=== PATIENT | male | born 1940 | race Caucasian/White ===

== ENCOUNTER 2017-03-22 09:49 | Emergency (ER) | payer MEDICARE, BC ==
[2017-03-22] MEDS ORDERED: Albuterol/Ipratropium 3.0-0.5 MG/3 ML Neb Soln NEB ONE (10:10)
[2017-03-22] MEDS ORDERED: Sodium Chloride 0.9% 10 ML Syringe FLUSH PRN (10:10)
[2017-03-22] MEDS ORDERED: methylPREDNISolone Sodium Succinate 125 MG/2 ML SDV IVPUSH ONE (10:11)
--- NOTE | 2017-03-22 10:16 | EDM.PDOC ---
ED HPI GENERAL MEDICAL PROBLEM - General Chief Complaint: Respiratory Problem Stated Complaint: SOB Time Seen by Provider: 03/22/17 10:05 Source of Information: Reports: Patient History Limitations: Reports: No Limitations - History of Present Illness INITIAL COMMENTS - FREE TEXT/NARRATIVE: The patient presents with shortness of breath and wheezing for a couple of days. He has a history of asthma but he has not needed any albuterol for 3 to 4 years. 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 He threw out his albuterol because it was outdated. He denies fever, chills, chest pain, abdominal pain, nausea or vomiting. He had a cold a few days ago with a mild cough. Onset: Gradual Duration: Day(s): (2) Severity: Moderate Improves with: Reports: None Worsens with: Reports: None Associated Symptoms: Reports: Shortness of Breath. Denies: Chest Pain, Fever/ Chills, Nausea/Vomiting - Related Data Allergies Allergy/AdvReac Type Severity Reaction Status Date / Time Sulfa (Sulfonamide Allergy Rash Verified 03/22/17 09:56 Antibiotics) Dust Allergy Other Uncoded 03/22/17 09:56 Home Meds: Home Meds Albuterol [IJD: Ventolin HFA] 2 puff INH Q6HR PRN #18 gm 03/22/17 [Rx] Insulin Glarg,Human.Rec.Analog [LantUS Solostar] 11 units SQ DAILY 03/22/17 [ History] Prednisone [IJD: predniSONE] 40 mg PO WITHBREAKFAST #10 tab 03/22/17 [Rx] atorvaSTATin [Lipitor] 40 mg PO DAILY 03/22/17 [History] metFORMIN HCl [Metformin HCl] 1 tab PO BID 03/22/17 [History] Past Medical History HEENT History: Reports: Impaired Vision Respiratory History: Reports: Asthma Gastrointestinal History: Reports: Hiatal Hernia Other Genitourinary History: Bladder cancer and had surgery Endocrine/Metabolic History: Reports: Diabetes, Type II Oncologic (Cancer) History: Reports: Bladder Other Oncologic History: "and skin cancer of the face." Other Dermatologic History: "skin cancer of the face" - Past Surgical History HEENT Surgical History: Reports: Tonsillectomy Musculoskeletal Surgical History: Reports: Shoulder Replacement Social & Family History - Family History Family Medical History: Noncontributory - Tobacco Use Smoking Status *Q: Never Smoker - Recreational Drug Use Recreational Drug Use: No ED ROS GENERAL - Review of Systems Review Of Systems: See Below Constitutional: Reports: No Symptoms HEENT: Reports: No Symptoms Respiratory: Reports: Shortness of Breath, Wheezing Cardiovascular: Reports: No Symptoms Endocrine: Reports: No Symptoms GI/Abdominal: Reports: No Symptoms : Reports: No Symptoms Musculoskeletal: Reports: No Symptoms ED EXAM, GENERAL - Physical Exam Exam: See Below Exam Limited By: No Limitations General Appearance: Alert, No Apparent Distress Ears: Normal External Exam Nose: Normal Inspection Head: Atraumatic, Normocephalic Neck: Normal Inspection Respiratory/Chest: No Respiratory Distress, Wheezing (Moderate) Cardiovascular: Regular Rate, Rhythm, No Edema, No Murmur GI/Abdominal: Soft, Non-Tender, No Organomegaly, No Mass Back Exam: Normal Inspection Extremities: Normal Inspection Course - Vital Signs Last Recorded V/S: Last Vital Signs Temp 97.2 F 03/22/17 09:52 Pulse 85 03/22/17 09:52 Resp 21 H 03/22/17 09:52 BP 161/82 H 03/22/17 09:52 Pulse Ox 96 03/22/17 10:30 - Orders/Labs/Meds Orders: Active Orders 24 hr Category Date Time Status Cardiac Monitoring [RC] . DIRECTED Care 03/22/17 10:10 Active Oxygen Therapy [RC] PRN Care 03/22/17 10:10 Active Peripheral IV Care [RC] . DIRECTED Care 03/22/17 10:10 Active RT Aerosol Therapy [RC] ASDIRECTED Care 03/22/17 10:10 Active Sodium Chloride 0.9% [Saline Flush] Med 03/22/17 10:10 Active 10 ml FLUSH ASDIRECTED PRN Peripheral IV Insertion Adult [OM.PC] Stat Oth 03/22/17 10:10 Ordered Medication Orders Sodium Chloride (Saline Flush) 10 ml FLUSH ASDIRECTED PRN PRN Reason: Keep Vein Open Last Admin: 03/22/17 10:22 Dose: 10 ml Labs: Laboratory Tests 03/22/17 03/22/17 Range/Units 10:00 10:00 WBC 8.49 (4.23-9.07) K/mm3 RBC 4.68 (4.63-6.08) M/mm3 Hgb 14.7 (13.7-17.5) gm/L Hct 43.9 (40.1-51.0) % MCV 93.8 H (79.0-92.2) fl MCH 31.4 (25.7-32.2) pg MCHC 33.5 (32.2-35.5) g/dl RDW Std Deviation 46.3 H (35.1-43.9) fL Plt Count 170 (163-337) K/mm3 MPV 10.9 (9.4-12.3) fl Neut % (Auto) 64.4 (34.0-67.9) % Lymph % (Auto) 15.9 L (21.8-53.1) % [place] % (Auto) 8.4 (5.3-12.2) % Eos % (Auto) 10.7 H (0.8-7.0) Baso % (Auto) 0.5 (0.1-1.2) % Neut # (Auto) 5.47 H (1.78-5.38) K/mm3 Lymph # (Auto) 1.35 (1.32-3.57) K/mm3 [place] # (Auto) 0.71 (0.30-0.82) K/mm3 Eos # (Auto) 0.91 H (0.04-0.54) K/mm3 Baso # (Auto) 0.04 (0.01-0.08) K/mm3 Sodium 141 (136-145) mEq/L Potassium 4.7 (3.5-5.1) mEq/L Chloride 105 (98-107) mEq/L Carbon Dioxide 28 (21-32) mEq/L Anion Gap 12.7 (5-15) BUN 25 H (7-18) mg/dL Creatinine 1.6 H (0.7-1.3) mg/dL Est Cr Clr Drug Dosing 41.19 mL/min Estimated GFR (MDRD) 42 (>60) mL/min BUN/Creatinine Ratio 15.6 (14-18) Glucose 127 H (83-115) mg/dL Calcium 9.3 (8.5-10.1) mg/dL Total Bilirubin 0.6 (0.2-1.0) mg/dL AST 21 (15-37) U/L ALT 28 (16-63) U/L Alkaline Phosphatase 74 (46-116) U/L Total Protein 7.4 (6.4-8.2) g/dl Albumin 3.8 (3.4-5.0) g/dl Globulin 3.6 gm/dL Albumin/Globulin Ratio 1.1 (1-2) Meds: Medications Generic Name Dose Route Start Last Admin Trade Name Freq PRN Reason Stop Dose Admin Sodium Chloride 10 ml 03/22/17 10:10 03/22/17 10:22 Saline Flush FLUSH 10 ml ASDIRECTED PRN Administration Keep Vein Open Discontinued Medications Generic Name Dose Route Start Last Admin Trade Name Freq PRN Reason Stop Dose Admin Albuterol/Ipratropium 3 ml 03/22/17 10:10 03/22/17 10:30 Duoneb 3.0-0.5 Mg/3 Ml NEB 03/22/17 10:11 3 ml ONETIME ONE Administration Methylprednisolone Sodium Succinate 125 mg 03/22/17 10:11 03/22/17 10:20 Solu-Medrol IVPUSH 03/22/17 10:12 125 mg ONETIME ONE Administration - Re-Assessments/Exams Free Text/Narrative Re-Assessment/Exam: 03/22/17 10:18 I ordered an IV saline lock, duoneb, solu-medrol 125mg IV, labs and CXR. 03/22/17 11:04 His CXR looks good. His CBC looks good. His creatinine is a little elevated at 1.6. He is breathing better. I will get him a prescription for prednisone and albuterol. Departure - Departure Time of Disposition: 11:05 Disposition: Home, Self-Care 01 Condition: Good Clinical Impression: Exacerbation of asthma Qualifiers: Asthma severity: moderate Asthma persistence: unspecified Qualified Code(s): J45.901 - Unspecified asthma with (acute) exacerbation - Discharge Information Prescriptions: Albuterol [IJD: Ventolin HFA] 2 puff INH Q6HR PRN #18 gm PRN Reason: Shortness Of Breath Prednisone [IJD: predniSONE] 40 mg PO WITHBREAKFAST #10 tab Referrals: Pelon Morgan MD [Primary Care Provider] - Forms: ED Department Discharge Additional Instructions: Take the prednisone daily for 5 days. Take the albuterol 2 puffs every 4 to 6 hours as needed for wheezing or shortness of breath. Please return if you are worse. - My Orders Last 24 Hours: My Active Orders 03/22/17 10:10 Cardiac Monitoring [RC] . DIRECTED Oxygen Therapy [RC] PRN Peripheral IV Care [RC] . DIRECTED RT Aerosol Therapy [RC] ASDIRECTED Sodium Chloride 0.9% [Saline Flush] 10 ml FLUSH ASDIRECTED PRN Peripheral IV Insertion Adult [OM.PC] Stat - Assessment/Plan Last 24 Hours: My Active Orders 03/22/17 10:10 Cardiac Monitoring [RC] . DIRECTED Oxygen Therapy [RC] PRN Peripheral IV Care [RC] . DIRECTED RT Aerosol Therapy [RC] ASDIRECTED Sodium Chloride 0.9% [Saline Flush] 10 ml FLUSH ASDIRECTED PRN Peripheral IV Insertion Adult [OM.PC] Stat
--- NOTE | 2017-03-22 10:56 | CR ---
Chest: Two views of the chest were obtained. Comparison: No prior study. Heart size at the upper limits of normal. Tortuous thoracic aorta is seen. Right shoulder prosthesis is seen. Lungs are clear with no acute infiltrates. Mild degenerative change is noted within the spine. Impression: 1. Incidental findings. Nothing acute is seen. Diagnostic code #2
== END 2017-03-22 11:37 | disposition home or self-care (01) ==
LOC: JD.ED 09:49
DX: J45.901 Unspecified asthma with (acute) exacerbation (principal); E11.9 Type 2 diabetes mellitus without complications; Z88.2 Allergy status to sulfonamides; Z79.4 Long term (current) use of insulin; Z79.899 Other long term (current) drug therapy
CPT/HCPCS: 36415; 71020; 80053; 85025; 94640; 96374; 99285; J2930; J7050; 99284

== ENCOUNTER 2018-12-02 09:13 | Emergency (ER) | payer MEDICARE, BC ==
--- NOTE | 2018-12-02 09:46 | EDM.PDOC ---
ED HPI GENERAL MEDICAL PROBLEM - General Chief Complaint: Chest Pain Stated Complaint: CHEST CONGESTION Time Seen by Provider: 12/02/18 09:24 Source of Information: Reports: Patient, RN Notes Reviewed History Limitations: Reports: No Limitations - History of Present Illness INITIAL COMMENTS - FREE TEXT/NARRATIVE: The patient states that he has had a cough productive of yellow sputum, along with nasal congestion and generalized weakness, for the past 10 days. He denies having any chest discomfort, palpitations, dyspnea, nausea, vomiting, constipation, diarrhea, abdominal pain, or urinary symptoms. He has a documented history of asthma, but denies any recent wheezing. The patient's PCP is Dr. Pelon Morgan, in [place]. His Motorized Squad Captain is Dr. William FontanaJuan Josévonda Beckford. - Related Data Allergies Allergy/AdvReac Type Severity Reaction Status Date / Time Sulfa (Sulfonamide Allergy Rash Verified 03/22/17 09:56 Antibiotics) Dust Allergy Other Uncoded 03/22/17 09:56 Home Meds: Home Meds Albuterol [IJD: Ventolin HFA] 2 puff INH Q6HR PRN #18 gm 03/22/17 [Rx] Prednisone [IJD: predniSONE] 40 mg PO WITHBREAKFAST #10 tab 03/22/17 [Rx] atorvaSTATin [Lipitor] 40 mg PO DAILY 03/22/17 [History] metFORMIN HCl [Metformin HCl] 1 tab PO BID 03/22/17 [History] Fluticasone/Salmeterol [Advair 100-50] 1 puff INH BID 12/02/18 [History] Lisinopril 10 mg PO DAILY 12/02/18 [History] Omeprazole 20 mg PO DAILY 12/02/18 [History] Past Medical History HEENT History: Reports: Impaired Vision Cardiovascular History: Reports: High Cholesterol, Hypertension Respiratory History: Reports: Asthma (PFT-confirmed) Gastrointestinal History: Reports: GERD, Hiatal Hernia Genitourinary History: Reports: Chronic Renal Insuffiency Endocrine/Metabolic History: Reports: Diabetes, Type II Oncologic (Cancer) History: Reports: Basal Cell Carcinoma (face), Bladder (s/p TURBT + CTx. No RTx.) - Past Surgical History HEENT Surgical History: Reports: Cataract Surgery, Naso-Sinus Surgery (x 2), Oral Surgery (2 wisdom teeth extracted), Tonsillectomy GI Surgical History: Reports: Hernia, Inguinal (right) Male Surgical History: Reports: TURBT-Transurethral Resection of Bladder Tumor Musculoskeletal Surgical History: Reports: Shoulder Replacement (right, reverse) Social & Family History - Family History Family Medical History: Noncontributory - Tobacco Use Smoking Status *Q: Former Smoker Years of Tobacco use: 15 Packs/Tins Daily: 1 Month/Year Tobacco Last Used: Quit late - Caffeine Use Caffeine Use: Reports: Coffee - Alcohol Use Alcohol Use History: Yes Alcohol Use Frequency: Socially - Recreational Drug Use Recreational Drug Use: No - Living Situation & Occupation Living situation: Reports: Single, Other ([employer] community) Occupation: Employed ([employer]) ED ROS GENERAL - Review of Systems Review Of Systems: ROS reveals no pertinent complaints other than HPI. ED EXAM, GENERAL - Physical Exam Exam: See Below Exam Limited By: No Limitations General Appearance: Alert, No Apparent Distress, Thin Eye Exam: Bilateral Eye: EOMI, Normal Inspection Ears: Normal External Exam, Hearing Grossly Normal Nose: Normal Inspection, Normal Mucosa, No Blood Throat/Mouth: Normal Inspection, Normal Lips, Normal Teeth, Normal Gums, Normal Oropharynx, Normal Voice, No Airway Compromise Head: Atraumatic, Normocephalic Neck: Normal Inspection, Supple, Non-Tender, Full Range of Motion. No: Lymphadenopathy (L), Lymphadenopathy (R) Respiratory/Chest: No Respiratory Distress, No Accessory Muscle Use, Crackles ( on right), Rhonchi (bilateral, with occasional expiratory squeaks). No: Decreased Breath Sounds, Wheezing, Prolonged Expiration Cardiovascular: Normal Peripheral Pulses, Regular Rate, Rhythm, No Edema, No Gallop, No JVD, No Murmur, No Rub Peripheral Pulses: 4+: Radial (L), Radial (R) GI/Abdominal: Normal Bowel Sounds, Soft, Non-Tender, No Organomegaly, No Distention, No Abnormal Bruit, No Mass (Male) Exam: Deferred Rectal (Males) Exam: Deferred Back Exam: Normal Inspection, Full Range of Motion, NT Extremities: Normal Inspection, Normal Range of Motion, No Pedal Edema, Normal Capillary Refill Neurological: Alert, Oriented, Normal Cognition, No Motor/Sensory Deficits Psychiatric: Normal Affect Skin Exam: Warm, Dry, Intact, Normal Color, No Rash Course - Vital Signs Last Recorded V/S: Last Vital Signs Temp 36.7 C 06/28/19 09:21 Pulse 85 12/02/18 09:21 Resp 18 12/02/18 09:21 BP 155/74 H 12/02/18 09:21 Pulse Ox 97 12/02/18 09:21 - Orders/Labs/Meds Orders: Active Orders 24 hr Category Date Time Status EKG Documentation Completion [RC] STAT Care 12/02/18 09:27 Inactive CULTURE BLOOD [BC] Stat Lab 12/02/18 10:14 Received CULTURE BLOOD [BC] Stat Lab 12/02/18 10:21 Received Blood Culture x2 Reflex Set [OM.PC] Stat Oth 12/02/18 09:41 Ordered Labs: Laboratory Tests 12/02/18 12/02/18 12/02/18 Range/Units 10:14 10:14 10:14 WBC 10.36 H (4.23-9.07) K/mm3 RBC 4.01 L (4.63-6.08) M/mm3 Hgb 12.4 L D (13.7-17.5) gm/L Hct 37.0 L (40.1-51.0) % MCV 92.3 H (79.0-92.2) fl MCH 30.9 (25.7-32.2) pg MCHC 33.5 (32.2-35.5) g/dl RDW Std Deviation 43.2 (35.1-43.9) fL Plt Count 223 (163-337) K/mm3 MPV 9.9 (9.4-12.3) fl Neutrophils % (Manual) 83 H (40-60) % Band Neutrophils % 1 (0-10) % Lymphocytes % (Manual) 10 L (20-40) % Atypical Lymphs % 0 % Monocytes % (Manual) 5 (2-10) % Eosinophils % (Manual) 1 (0.8-7.0) % Basophils % (Manual) 0 L (0.2-1.2) Platelet Estimate Adequate Plt Morphology Comment Normal RBC Morph Comment Normal Sodium 135 L (136-145) mEq/L Potassium 4.1 (3.5-5.1) mEq/L Chloride 101 (98-107) mEq/L Carbon Dioxide 23 (21-32) mEq/L Anion Gap 15.1 H (5-15) BUN 24 H (7-18) mg/dL Creatinine 1.5 H (0.7-1.3) mg/dL Est Cr Clr Drug Dosing 42.34 mL/min Estimated GFR (MDRD) 45 (>60) mL/min BUN/Creatinine Ratio 16.0 (14-18) Glucose 146 H (83-115) mg/dL Lactic Acid 1.7 (0.4-2.0) mmol/L Calcium 9.2 (8.5-10.1) mg/dL Total Bilirubin 0.5 (0.2-1.0) mg/dL AST 56 H (15-37) U/L ALT 103 H (16-63) U/L Alkaline Phosphatase 69 (46-116) U/L Total Protein 7.1 (6.4-8.2) g/dl Albumin 2.7 L (3.4-5.0) g/dl Globulin 4.4 gm/dL Albumin/Globulin Ratio 0.6 L (1-2) - Re-Assessments/Exams Free Text/Narrative Re-Assessment/Exam: 12/02/18 09:42 The patient had told Monika SMILEY that he had right-sided chest pain, however, when I came in the room, he insisted that he has not been experiencing chest pain or dyspnea. He reports only a cough productive of yellow sputum, nasal congestion, and generalized weakness. Based on the triage note, I had ordered a workup that included an ECG, troponin, and D-dimer, however, without the chest discomfort or dyspnea, I discontinued those orders. The patient will have a CBC, CMP, lactic acid, and 2 sets of blood cultures drawn, along with a chest x-ray. 12/02/18 10:00 2-view chest radiograph reviewed. There is mild cardiomegaly, but no pulmonary vascular congestion or pleural effusions to suggest decompensated CHF. No focal infiltrate. No pneumothorax. Aortosclerosis noted. Right shoulder prosthesis noted. Formal read per the Radiologist pending. 12/02/18 11:40 The patient's CBC is remarkable for WBC count slightly elevated at 10.36, but with only 1% bandemia. His H/H is slightly depressed at 12.4/37.0. The remainder of his CBC is unremarkable. His CMP is remarkable for potassium at the lower end of normal at 135. His BUN/ Cr are elevated at 24/1.5. They were 25/1.6 on 03/22/2017. His blood glucose is elevated at 146. His AST/ALT are slightly elevated at 56/103. His albumin is depressed at 2.7. The remainder of his CMP is unremarkable. His lactic acid is within normal limits at 1.7. Based on the patient's ED evaluation, he is likely suffering from a viral URI. There is no suggestion of a bacterial infection, therefore antibiotics are not indicated. I will add chronic renal insufficiency to his PMHx. 12/02/18 11:56 Test results discussed with the patient. I will discharge him home. Departure - Departure Time of Disposition: 11:56 Disposition: Home, Self-Care 01 Condition: Good Clinical Impression: Viral URI with cough - Discharge Information *PRESCRIPTION DRUG MONITORING PROGRAM REVIEWED*: Not Applicable *COPY OF PRESCRIPTION DRUG MONITORING REPORT IN PATIENT ISAÍAS: Not Applicable Referrals: Pelon Morgan MD [Primary Care Provider] - William Beckford MD [Ordering Only Provider] - Forms: ED Department Discharge Additional Instructions: You were seen in the emergency room for nasal congestion, generalized weakness, and a cough productive of yellow sputum, for the past 10 days. Workup in the ER included blood work, 2 sets of blood cultures, and a chest x- ray. Your workup confirmed that you have some chronic renal insufficiency, but was otherwise unremarkable. You do not have pneumonia. Based on your history, physical examination, and ER tests, you are most likely suffering from a viral URI with postnasal drip, causing a cough. Unfortunately, there are no medicines to get rid of a viral URI - it will have to run its course. We do not recommend that you take any [id number] cough or cold remedies, as studies have repeatedly shown that they are not effective. Follow-up with your PCP, Dr. Pelon Morgan, as needed. If any other problems, please do not hesitate to return to the ER. - My Orders Last 24 Hours: My Active Orders 12/02/18 09:27 EKG Documentation Completion [RC] STAT 12/02/18 09:41 Blood Culture x2 Reflex Set [OM.PC] Stat 12/02/18 10:14 CULTURE BLOOD [BC] Stat 12/02/18 10:21 CULTURE BLOOD [BC] Stat - Assessment/Plan Last 24 Hours: My Active Orders 12/02/18 09:27 EKG Documentation Completion [RC] STAT 12/02/18 09:41 Blood Culture x2 Reflex Set [OM.PC] Stat 12/02/18 10:14 CULTURE BLOOD [BC] Stat 12/02/18 10:21 CULTURE BLOOD [BC] Stat
--- NOTE | 2018-12-02 10:12 | CR ---
Chest: Two views of the chest were obtained. Comparison: Prior chest x-ray of 03/22/17. Heart size at the upper limits of normal. Tortuous thoracic aorta is seen. Right shoulder prosthesis is seen. Lungs are clear with no acute parenchymal change. Scattered degenerative endplate spurring and disc space narrowing is seen within the spine. Impression: 1. Stable findings as described above. Nothing acute is appreciated. Diagnostic code #2
== END 2018-12-02 12:39 | disposition home or self-care (01) ==
LOC: JD.ED 09:13
DX: J06.9 Acute upper respiratory infection, unspecified (principal); E11.22 Type 2 diabetes mellitus with diabetic chronic kidney disease; I12.9 Hypertensive chronic kidney disease with stage 1 through stage 4 chronic kidney disease, or unspecified chronic kidney disease; N18.9 Chronic kidney disease, unspecified; E78.00 Pure hypercholesterolemia, unspecified; K21.9 Gastro-esophageal reflux disease without esophagitis; J45.909 Unspecified asthma, uncomplicated; Z79.84 Long term (current) use of oral hypoglycemic drugs; Z79.899 Other long term (current) drug therapy; Z87.891 Personal history of nicotine dependence; Z88.2 Allergy status to sulfonamides; Z91.09 Other allergy status, other than to drugs and biological substances
CPT/HCPCS: 36415; 71046; 71046-26; 80053; 83605; 85007; 85027; 87040; 93010; 99282; 99285-25

== ENCOUNTER 2021-10-30 07:47 | Emergency (ER) | payer MEDICARE, BC ==
[2021-10-30] MEDS ORDERED: Sodium Chloride 0.9% 500 ML IV ONE (12:04)
[2021-10-30] MEDS ORDERED: Sodium Chloride 0.9% 10 ML Syringe FLUSH PRN (12:07)
[2021-10-30] MEDS ORDERED: Iopamidol 755 Mg/ML 100 ML Bottle IVPUSH ONE (12:07)
[2021-10-30] MEDS ORDERED: Sodium Chloride 0.9% 100 ML IV SCH (12:15)
== END 2021-10-30 14:34 | disposition home or self-care (01) ==
LOC: JD.ED 07:47
DX: R55 Syncope and collapse (principal); I49.3 Ventricular premature depolarization; E78.00 Pure hypercholesterolemia, unspecified; J45.909 Unspecified asthma, uncomplicated; I10 Essential (primary) hypertension; K21.9 Gastro-esophageal reflux disease without esophagitis; E11.9 Type 2 diabetes mellitus without complications; Z79.899 Other long term (current) drug therapy; Z88.2 Allergy status to sulfonamides; Z91.048 Other nonmedicinal substance allergy status; Z79.84 Long term (current) use of oral hypoglycemic drugs; Z20.822 Contact with and (suspected) exposure to COVID-19
CPT/HCPCS: 36415; 70450; 70450-26; 71275; 71275-26; 80053; 81001; 82947; 83735; 84484; 85025; 85379; 85610; 85730; 93005; 93225; 93226; 96360; 96361; 99284-25; J3490; J7030; Q9967; U0002

== ENCOUNTER 2022-10-25 07:58 | Emergency (ER) | payer MEDICARE, BC ==
[2022-10-25 08:24] LABS: BASOPHILS ABSOLUTE AUTO 0.02 K/mm3 (0.01-0.08); BASOPHILS PERCENT AUTO 0.2 % (0.1-1.2); EOSINOPHILS ABSOLUTE AUTO 0.08 K/mm3 (0.04-0.54); EOSINOPHILS PERCENT AUTO 0.8 (0.8-7.0); HEMATOCRIT 42.3 % (40.1-51.0); IMMATURE GRAN ABSOLUTE AUTO 0.01 K/mm3 (0.00-0.10); IMMATURE GRAN PERCENT AUTO 0.1 % (<=1.0); LYMPHOCYTES ABSOLUTE AUTO 0.75 K/mm3 (1.32-3.57); LYMPHOCYTES PERCENT AUTO 7.9 % (21.8-53.1); MEAN CORPUSCULAR HEMOGLOBIN 30.8 pg (25.7-32.2); MEAN CORPUSCULAR HGB CONC 33.1 g/dl (32.2-35.5); MEAN CORPUSCULAR VOLUME 93.2 fl (79.0-92.2); MEAN PLATELET VOLUME 10.9 fl (9.4-12.3); MONOCYTES PERCENT AUTO 6.3 % (5.3-12.2); NEUTROPHILS ABSOLUTE AUTO 8.01 K/mm3 (1.78-5.38); NEUTROPHILS PERCENT AUTO 84.7 % (34.0-67.9); PLATELET COUNT,PLT 139 K/mm3 (163-337); RED BLOOD CELL COUNT 4.54 M/mm3 (4.63-6.08); WHITE BLOOD CELL COUNT,WBC 9.47 K/mm3 (4.23-9.07)
[2022-10-25 08:31] LABS: INR 1.03
[2022-10-25 08:32] LABS: ALBUMIN 3.6 g/dl (3.4-5.0); ANION GAP 11.7 (5-15); BILIRUBIN TOTAL 0.5 mg/dL (0.2-1.0); BUN/CREATININE RATIO 16.3 (14-18); CALCIUM 9.1 mg/dL (8.5-10.1); CREATININE 1.9 mg/dL (0.7-1.3); EST CRCL DRUG DOSING (CG) 30.66 mL/min; POTASSIUM,K 4.7 mEq/L (3.5-5.1); PROTEIN TOTAL,TP 7.4 g/dl (6.4-8.2); PTT,PARTIAL THROMBOPLSTIN TIME 26.3 SECONDS (21.7-31.4)
== END 2022-10-25 10:10 ==
LOC: JD.ED 07:58
DX: I63.311 Cerebral infarction due to thrombosis of right middle cerebral artery (principal); K21.9 Gastro-esophageal reflux disease without esophagitis; E78.00 Pure hypercholesterolemia, unspecified; I10 Essential (primary) hypertension; J45.909 Unspecified asthma, uncomplicated; E11.9 Type 2 diabetes mellitus without complications; Z91.09 Other allergy status, other than to drugs and biological substances; Z88.2 Allergy status to sulfonamides; Z79.84 Long term (current) use of oral hypoglycemic drugs; Z79.899 Other long term (current) drug therapy
CPT/HCPCS: 36415; 70450; 70450-26; 70496; 70496-26; 70498; 70498-26; 80053; 84484; 85025; 85610; 85730; 93005; 93010; 99285